=== PATIENT | male | born 1940 | race African-American/Black ===

== ENCOUNTER 2019-04-22 21:37 | Inpatient (IN) | payer MEDICARE ==
[~2019-04-22] VITALS: Ht 177.8 cm; Wt 66.2 kg
[~2019-04-22 21:37] MED LIST: ASPI-1393 PO; ATOR40TA70 PO; BICA50TA48 PO; CLON0.1T PO; FAMO40TA7 PO; GLIP10TA10 PO; NIFE60TA64 PO; OMEP20CA5 PO; SITA100T11 PO; TAMS0.4C31 PO
[2019-04-22] MEDS ORDERED: ENALAPRIL 2.5MG/2ML VIAL 2ML IV ONE (22:00)
[2019-04-22] MEDS ORDERED: SODIUM CHLORIDE 0.9% 1,000 ML IV ONE (22:13)
[2019-04-22] MEDS ORDERED: ENALAPRIL 1.25MG/ML VIAL 1ML IV NR (23:02)
[2019-04-22 23:08] LABS: CLARITY URINE CLEAR (CLEAR); COLOR URINE YELLOW (YELLOW); KETONES URINE NEGATIVE (NEGATIVE); LEUKOCYTE ESTERASE URINE NEGATIVE (NEGATIVE); NITRITE URINE NEGATIVE (NEGATIVE); OCCULT BLOOD URINE NEGATIVE (NEGATIVE); PH URINE 5.5 (4.5-8.0); PROTEIN URINE NEGATIVE (NEGATIVE); SPECIFIC GRAVITY URINE 1.006 (1.005-1.030); UROBILINOGEN URINE 0.2 E.U./dL (0.2-1.0)
[2019-04-22 23:44] LABS: BASOPHILS % 0.6 % (0.0-2.0); EOSINOPHILS % 6.8 % (0.0-5.0); HEMATOCRIT. 33.3 % (42.0-52.0); HEMOGLOBIN. 11.6 g/dL (14.0-18.0); LYMPHOCYTES % 23.5 % (20.0-50.0); MEAN CORPUSCULAR HEMOGLOBIN 31.1 pg (28.0-32.0); MEAN CORPUSCULAR VOLUME 89.1 fL (80.0-94.0); MEAN PLATELET VOLUME 7.1 fl (7.4-10.4); MONOCYTES % 9.1 % (2.0-8.0); PLATELET 231 x1000/uL (130-400); RED BLOOD CELL COUNT 3.74 mill/uL (4.7-6.1); RED CELL DISTRIBUTION WIDTH 13.4 % (11.6-14.6)
[2019-04-22 23:47] LABS: CHLORIDE 105 mEq/L (98-107)
[2019-04-23] VITALS (8 sets, daily range): BP systolic 118–181; BP diastolic 62–93
[2019-04-23] MEDS ORDERED: ASPIRIN 325MG EC TABLET PO ONE (01:45)
[2019-04-23] MEDS ORDERED: METF-414 MT (08:45)
[2019-04-23] MEDS ORDERED: CLONIDINE 0.1MG TABLET PO PRN (08:45)
[2019-04-23] MEDS ORDERED: DEXTROSE 50% WATER 50ML SYRINGE IV PRN ×2 (09:30)
[2019-04-23] MEDS: ASPIRIN 81MG TABLET PO SCH (10:24)
[2019-04-23] MEDS ORDERED: LISI-604 MT (10:38)
[2019-04-23] MEDS ORDERED: FERR325T6 MT (10:38)
[2019-04-23] MEDS ORDERED: AMLODIPINE 5MG TABLET PO SCH (10:45)
[2019-04-23] MEDS ORDERED: METOPROLOL TARTRATE 25MG TABLET PO SCH (10:45)
[2019-04-23] MEDS: BLOOD SUGAR DIAGNOSTIC STRIP TEST SCH ×3 (12:35→20:42)
[2019-04-23] MEDS: INSULIN LISPRO 100 UNITS/ML SUBCUT SCH ×3 (12:38→20:43)
[2019-04-23 12:51] LABS: BASOPHILS % 0.9 % (0.0-2.0); EOSINOPHILS % 4.2 % (0.0-5.0); HEMATOCRIT. 29.9 % (42.0-52.0); HEMOGLOBIN. 10.5 g/dL (14.0-18.0); LYMPHOCYTES % 21.5 % (20.0-50.0); MEAN CORPUSCULAR HEMOGLOBIN 31.2 pg (28.0-32.0); MEAN CORPUSCULAR VOLUME 88.5 fL (80.0-94.0); MEAN PLATELET VOLUME 7.3 fl (7.4-10.4); MONOCYTES % 7.3 % (2.0-8.0); NEUTROPHILS % 66.1 % (40.0-76.0); PLATELET 220 x1000/uL (130-400); RED BLOOD CELL COUNT 3.38 mill/uL (4.7-6.1); RED CELL DISTRIBUTION WIDTH 13.3 % (11.6-14.6)
[2019-04-23 12:56] LABS: PROTHROMBIN TIME 10.5 sec (9.6-11.0)
[2019-04-23 13:29] LABS: CHLORIDE 106 mEq/L (98-107)
[2019-04-23 13:38] LABS: BG CARBOXYHEMOGLOBIN 0.3 % (0.5-1.5); BG DEOXYHEMOGLOBIN 4.5 % (0.0-5.0); BG FRACTION INSPIRED OXYGEN 21; BG HCO3 ACT 26.2 mmol/L (22.0-26.0); BG METHEMOGLOBIN 0.2 % (0.0-1.5); BG OXYGEN SATURATION 95.5 % (92.0-98.5); BG PCO2 44.3 mmHg (35.0-45.0); BG PO2 82.6 mmHg (75.0-100.0); BG SAMPLE SITE RIGHT RADIAL; BG TOTAL HEMOGLOBIN 11.2 g/dL (12.0-18.0); BG VENT MODE ROOM AIR
[2019-04-23] MEDS ORDERED: HYDRALAZINE 20MG/ML VIAL IV PRN (15:15)
[2019-04-23] MEDS ORDERED: IPRATROPIUM/ALBUTEROL 0.5-3(2.5)MG/3ML NEB HHN PRN (15:15)
[2019-04-23] MEDS ORDERED: HYDROCODONE/ACETAMINOPHEN 5/325MG TABLET PO PRN (15:15)
[2019-04-23] MEDS ORDERED: DIPHENHYDRAMINE 50MG/ML VIAL IV PRN (15:15)
[2019-04-23] MEDS: NIFEDIPINE XL 30MG TAB PO SCH (17:06)
[2019-04-23 17:22] LABS: CREATINE KINASE 47 IU/L (39-308); CREATINE KINASE MB FRACTION < 1.0 ng/mL (0.5-3.6)
[2019-04-23] MEDS ORDERED: IOHEXOL-350 100 ML BOTTLE ONE (18:15)
[2019-04-23] MEDS: METOPROLOL TARTRATE 25MG TABLET PO SCH (20:44)
[2019-04-23] MEDS ORDERED: LACTULOSE 20G/30ML UDC PO PRN (21:00)
[2019-04-23] MEDS ORDERED: ATORVASTATIN CALCIUM 10MG TABLET PO SCH (21:00)
[2019-04-23 22:07] LABS: OPIATES URINE SCREEN NEGATIVE (NEGATIVE); PHENCYCLIDINE URINE SCREEN NEGATIVE (NEGATIVE)
[2019-04-23 22:08] LABS: *AMPHETAMINES SCREEN URINE NEGATIVE (NEGATIVE); *BARBITURATES SCREEN URINE NEGATIVE (NEGATIVE); *BENZODIAZEPINES SCREEN URINE NEGATIVE (NEGATIVE); *COCAINE SCREEN URINE NEGATIVE (NEGATIVE); CANNABINOID URINE SCREEN NEGATIVE (NEGATIVE); METHADONE URINE SCREEN NEGATIVE (NEGATIVE)
[2019-04-23 23:35] LABS: CREATINE KINASE 48 IU/L (39-308)
[2019-04-23 23:36] LABS: CREATINE KINASE MB FRACTION < 1.0 ng/mL (0.5-3.6)
[2019-04-24] VITALS (8 sets, daily range): BP systolic 103–159; BP diastolic 55–77
[2019-04-24] MEDS: BLOOD SUGAR DIAGNOSTIC STRIP TEST SCH ×4 (06:20→20:55)
[2019-04-24 06:37] LABS: BASOPHILS % 0.8 % (0.0-2.0); EOSINOPHILS % 7.9 % (0.0-5.0); HEMATOCRIT. 28.6 % (42.0-52.0); HEMOGLOBIN. 10.1 g/dL (14.0-18.0); LYMPHOCYTES % 27.6 % (20.0-50.0); MEAN CORPUSCULAR HEMOGLOBIN 31.3 pg (28.0-32.0); MEAN CORPUSCULAR VOLUME 88.2 fL (80.0-94.0); MEAN PLATELET VOLUME 7.3 fl (7.4-10.4); MONOCYTES % 9.8 % (2.0-8.0); NEUTROPHILS % 53.9 % (40.0-76.0); PLATELET 227 x1000/uL (130-400); RED BLOOD CELL COUNT 3.24 mill/uL (4.7-6.1); RED CELL DISTRIBUTION WIDTH 13.3 % (11.6-14.6)
[2019-04-24 06:38] LABS: CHLORIDE 106 mEq/L (98-107)
[2019-04-24 06:56] LABS: CREATINE KINASE MB FRACTION < 1.0 ng/mL (0.5-3.6); LDL CHOLESTEROL 108 mg/dL (5-100)
[2019-04-24 06:57] LABS: CREATINE KINASE 46 IU/L (39-308); HDL CHOLESTEROL 60 mg/dL (40-59); T4 FREE 1.05 ng/dL (0.76-1.46)
[2019-04-24] MEDS: INSULIN LISPRO 100 UNITS/ML SUBCUT SCH ×4 (07:50→20:57)
[2019-04-24] MEDS: NIFEDIPINE XL 30MG TAB PO SCH (09:20)
[2019-04-24] MEDS: METOPROLOL TARTRATE 25MG TABLET PO SCH ×2 (09:20→20:56)
[2019-04-24] MEDS: ASPIRIN 81MG TABLET PO SCH (09:20)
[2019-04-24 16:22] LABS: VITAMIN B12 SERUM 405 pg/mL (211-911)
[2019-04-24] MEDS: ATORVASTATIN CALCIUM 20MG TABLET PO SCH (20:56)
[2019-04-25] VITALS (7 sets, daily range): BP systolic 127–186; BP diastolic 67–90
[2019-04-25] MEDS: BLOOD SUGAR DIAGNOSTIC STRIP TEST SCH ×4 (06:20→21:43)
[2019-04-25 06:56] LABS: EOSINOPHILS % 7.2 % (0.0-5.0); HEMATOCRIT. 29.5 % (42.0-52.0); HEMOGLOBIN. 10.5 g/dL (14.0-18.0); LYMPHOCYTES % 26.9 % (20.0-50.0); MEAN CORPUSCULAR HEMOGLOBIN 31.6 pg (28.0-32.0); MEAN CORPUSCULAR VOLUME 88.8 fL (80.0-94.0); MEAN PLATELET VOLUME 7.4 fl (7.4-10.4); MONOCYTES % 9.9 % (2.0-8.0); PLATELET 222 x1000/uL (130-400); RED BLOOD CELL COUNT 3.32 mill/uL (4.7-6.1); RED CELL DISTRIBUTION WIDTH 13.3 % (11.6-14.6)
[2019-04-25 06:59] LABS: CHLORIDE 107 mEq/L (98-107)
[2019-04-25] MEDS: INSULIN LISPRO 100 UNITS/ML SUBCUT SCH ×4 (09:06→21:45)
[2019-04-25] MEDS: ASPIRIN 81MG TABLET PO SCH (09:09)
[2019-04-25] MEDS: METOPROLOL TARTRATE 25MG TABLET PO SCH ×2 (09:09→21:43)
[2019-04-25] MEDS: NIFEDIPINE XL 30MG TAB PO SCH (09:09)
[2019-04-25] MEDS: LOSARTAN POTASSIUM 50 MG TABLET PO SCH (17:34)
[2019-04-25] MEDS: ATORVASTATIN CALCIUM 20MG TABLET PO SCH (21:43)
[2019-04-26] VITALS (8 sets, daily range): BP systolic 127–182; BP diastolic 60–85
[2019-04-26] MEDS ORDERED: DEXT 5%/0.45% NACL 1000ML 1,000 ML IV SCH
[2019-04-26] MEDS: BLOOD SUGAR DIAGNOSTIC STRIP TEST SCH ×3 (06:23→17:11)
[2019-04-26 07:23] LABS: BASOPHILS % 0.7 % (0.0-2.0); EOSINOPHILS % 6.9 % (0.0-5.0); HEMATOCRIT. 30.2 % (42.0-52.0); HEMOGLOBIN. 10.4 g/dL (14.0-18.0); LYMPHOCYTES % 26.8 % (20.0-50.0); MEAN CORPUSCULAR HEMOGLOBIN 30.5 pg (28.0-32.0); MEAN CORPUSCULAR VOLUME 88.8 fL (80.0-94.0); MEAN PLATELET VOLUME 7.4 fl (7.4-10.4); MONOCYTES % 9.2 % (2.0-8.0); NEUTROPHILS % 56.4 % (40.0-76.0); PLATELET 222 x1000/uL (130-400); RED CELL DISTRIBUTION WIDTH 13.4 % (11.6-14.6)
[2019-04-26 07:30] LABS: CHLORIDE 108 mEq/L (98-107)
[2019-04-26] MEDS: INSULIN LISPRO 100 UNITS/ML SUBCUT SCH ×3 (08:06→17:15)
[2019-04-26] MEDS: LOSARTAN POTASSIUM 50 MG TABLET PO SCH ×2 (08:13→17:11)
[2019-04-26] MEDS: NIFEDIPINE XL 30MG TAB PO SCH (08:14)
[2019-04-26] MEDS: ASPIRIN 81MG TABLET PO SCH (08:14)
[2019-04-26] MEDS: METOPROLOL TARTRATE 25MG TABLET PO SCH (08:15)
[2019-04-26] MEDS ORDERED: ATOR80TA MT (13:51)
[2019-04-26] MEDS ORDERED: ASPI-1158 PO (13:51)
[2019-04-26] MEDS ORDERED: METO25TA6 MT (13:51)
[2019-04-26] MEDS ORDERED: LOSA25TA3 PO (13:51)
[2019-04-26] MEDS ORDERED: NIFE10CA PO (13:51)
[2019-04-26 14:24] LABS: TOTAL IRON BINDING CAPACITY 247 ug/dL (250-450)
[2019-04-26] MEDS ORDERED: ATORVASTATIN CALCIUM 40MG TABLET PO SCH (21:00)
== END 2019-04-26 18:35 | disposition home or self-care (01) | DRG 74 ==
LOC: ER 21:37 → 6WST 04-23 01:38 → ENRESERV 04-23 07:09
PROVIDERS: ADMIT Internal Medicine; ATTEND Internal Medicine
DX: G90.8 Other disorders of autonomic nervous system (principal); I65.23 Occlusion and stenosis of bilateral carotid arteries; I16.0 Hypertensive urgency; I25.10 Atherosclerotic heart disease of native coronary artery without angina pectoris; E11.65 Type 2 diabetes mellitus with hyperglycemia; D64.9 Anemia, unspecified; E78.00 Pure hypercholesterolemia, unspecified; K21.9 Gastro-esophageal reflux disease without esophagitis; N40.0 Benign prostatic hyperplasia without lower urinary tract symptoms; E78.5 Hyperlipidemia, unspecified; Z92.3 Personal history of irradiation; Z79.84 Long term (current) use of oral hypoglycemic drugs; Z79.899 Other long term (current) drug therapy; Z85.46 Personal history of malignant neoplasm of prostate
CPT/HCPCS: 36415; 36600; 70498; 70551; 71045; 74176; 80048; 80061; 80305; 81003; 82375; 82550; 82553; 82607; 82805; 82962; 83036; 83540; 83550; 83605; 83735; 83880; 84153; 84439; 84443; 84484; 85044; 85379; 86850; 86900; 87804; 93005; 93306; 93880; 95816; 97162; 99285; J1815; J3490; J7030; Q9967; G0103

== ENCOUNTER 2020-07-25 00:31 | Inpatient (IN) | payer MEDICARE, OTHER ==
[~2020-07-25] VITALS: Ht 172.7 cm; Wt 69.9 kg
[~2020-07-25 00:31] MED LIST changes: -ASPI-1393 PO; +ASPI-1406 PO; -ATOR40TA70 PO; +ATOR80TA MT; -BICA50TA48 PO; -CLON0.1T PO; -FAMO40TA7 PO; +FERR325T6 MT; -GLIP10TA10 PO; +LOSA25TA3 PO; +METF-414 MT; +METO25TA6 MT; +NIFE10CA PO; -NIFE60TA64 PO; -OMEP20CA5 PO; -SITA100T11 PO; -TAMS0.4C31 PO
[2020-07-25] MEDS ORDERED: NITROGLYCERIN 0.4MG TABLET SL SL PRN (01:00)
[2020-07-25] MEDS ORDERED: ASPIRIN 81MG TABLET PO ONE (01:00)
[2020-07-25 01:12] LABS: BASOPHILS % 0.4 % (0.0-2.0); EOSINOPHILS % 4.1 % (0.0-5.0); HEMATOCRIT. 31.5 % (42.0-52.0); HEMOGLOBIN. 10.8 g/dL (14.0-18.0); MEAN CORPUSCULAR HEMOGLOBIN 29.8 pg (28.0-32.0); MEAN CORPUSCULAR VOLUME 87.2 fL (80.0-94.0); MONOCYTES % 6.6 % (2.0-8.0); NEUTROPHILS % 59.9 % (40.0-76.0); PLATELET 339 x1000/uL (130-400); RED BLOOD CELL COUNT 3.62 mill/uL (4.7-6.1); RED CELL DISTRIBUTION WIDTH 12.9 % (11.6-14.6)
[2020-07-25 01:34] LABS: CHLORIDE 103 mEq/L (98-107)
[2020-07-25] MEDS ORDERED: CEFTRIAXONE 1 G PREMIX 50 ML IV SCH (02:00)
[2020-07-25] MEDS ORDERED: AZITHROMYCIN 500 MG in DEXT 5% WATER 250 ML IV SCH (02:00)
[2020-07-25] MEDS ORDERED: ALBUTEROL 6.7GM HFA INHALER ORI PRN (07:45)
[2020-07-25] MEDS ORDERED: MAGNESIUM/ALUMINUM HYDROXIDE/SIMETHICONE 30ML UDC PO PRN (07:45)
[2020-07-25] MEDS ORDERED: DIPHENHYDRAMINE 50MG/ML VIAL IV PRN (07:45)
[2020-07-25] MEDS ORDERED: HYDROCODONE/ACETAMINOPHEN 5/325MG TABLET PO PRN (07:45)
[2020-07-25] MEDS ORDERED: GUAIFENESIN 200MG/10ML SUGAR FREE UDC PO PRN (07:45)
[2020-07-25] MEDS ORDERED: DOCUSATE SODIUM 100MG CAPSULE PO PRN (07:45)
[2020-07-25] MEDS ORDERED: ONDANSETRON HCL 4MG/2ML INJ IV PRN (07:45)
[2020-07-25] MEDS ORDERED: MORPHINE SULFATE 2 MG/ML CPJ (NOT FOR IM USE) IV PRN (07:45)
[2020-07-25] MEDS ORDERED: LORAZEPAM 2MG/ML CPJ IV PRN (07:45)
[2020-07-25] MEDS: ENOXAPARIN 40MG/0.4ML SYR SUBCUT SCH (08:34)
[2020-07-25 12:00] VITALS: BP 174/92
[2020-07-25] MEDS: CLONIDINE 0.1MG TABLET PO PRN (13:30)
[2020-07-25] MEDS: SODIUM CHLORIDE 0.9% 1,000 ML IV SCH (13:31)
[2020-07-25] MEDS: SODIUM CHLORIDE 0.9% INJ 3ML FLUSH IVF SCH ×2 (13:31→22:00)
[2020-07-25 16:00] VITALS: BP 182/88
[2020-07-25 18:43] LABS: CREATINE KINASE 42 IU/L (39-308)
[2020-07-25 18:44] LABS: CREATINE KINASE MB FRACTION < 1.0 ng/mL (0.5-3.6)
[2020-07-25 18:45] LABS: T4 FREE 1.15 ng/dL (0.76-1.46)
[2020-07-25 20:00] VITALS: BP 125/77
[2020-07-26 00:40] LABS: CREATINE KINASE 59 IU/L (39-308); CREATINE KINASE MB FRACTION < 1.0 ng/mL (0.5-3.6)
[2020-07-26] MEDS ORDERED: CEFTRIAXONE 1 G PREMIX 50 ML IV SCH (01:00)
[2020-07-26] MEDS: AZITHROMYCIN 500 MG in DEXT 5% WATER 250 ML IV SCH (01:30)
[2020-07-26 02:00] VITALS: BP 181/78
[2020-07-26] MEDS: CEFTRIAXONE 1,000 MG in DEXTROSE 5% WATER 50 ML IV SCH (02:04)
[2020-07-26] MEDS: CLONIDINE 0.1MG TABLET PO PRN ×2 (02:11→09:00)
[2020-07-26 04:00] VITALS: BP 159/70
[2020-07-26 08:00] VITALS: BP 186/89
[2020-07-26 08:28] LABS: CHLORIDE 109 mEq/L (98-107)
[2020-07-26 08:40] LABS: CREATINE KINASE 34 IU/L (39-308)
[2020-07-26 08:43] LABS: BASOPHILS % 0.5 % (0.0-2.0); EOSINOPHILS % 5.7 % (0.0-5.0); HEMATOCRIT. 24.6 % (42.0-52.0); HEMOGLOBIN. 8.7 g/dL (14.0-18.0); LYMPHOCYTES % 33.4 % (20.0-50.0); MEAN CORPUSCULAR HEMOGLOBIN 30.5 pg (28.0-32.0); MEAN CORPUSCULAR VOLUME 86.6 fL (80.0-94.0); MEAN PLATELET VOLUME 7.2 fl (7.4-10.4); MONOCYTES % 9.7 % (2.0-8.0); NEUTROPHILS % 50.7 % (40.0-76.0); PLATELET 277 x1000/uL (130-400); RED BLOOD CELL COUNT 2.84 mill/uL (4.7-6.1); RED CELL DISTRIBUTION WIDTH 12.7 % (11.6-14.6)
[2020-07-26 08:44] LABS: CREATINE KINASE MB FRACTION < 1.0 ng/mL (0.5-3.6)
[2020-07-26] MEDS: ENOXAPARIN 40MG/0.4ML SYR SUBCUT SCH (09:00)
[2020-07-26 12:00] VITALS: BP 152/53
[2020-07-26] MEDS: AMLODIPINE 10MG TABLET PO SCH (13:08)
[2020-07-26] MEDS: SODIUM CHLORIDE 0.9% INJ 3ML FLUSH IVF SCH ×2 (13:09→22:40)
[2020-07-26] MEDS: SODIUM CHLORIDE 0.9% 1,000 ML IV SCH (13:10)
[2020-07-26 16:00] VITALS: BP 164/67
[2020-07-26] MEDS: METFORMIN HCL 500MG TABLET PO SCH (17:33)
[2020-07-26] MEDS: BLOOD SUGAR DIAGNOSTIC STRIP TEST SCH (17:55)
[2020-07-26 20:00] VITALS: BP 166/75
[2020-07-26] MEDS: HYDRALAZINE HCL 50MG TABLET PO SCH (22:40)
[2020-07-26] MEDS: CLONIDINE 0.3MG TABLET PO PRN (23:56)
[2020-07-27] VITALS (7 sets, daily range): BP systolic 144–225; BP diastolic 50–95
[2020-07-27] MEDS: SODIUM CHLORIDE 0.9% 1,000 ML IV SCH ×2 (05:00→18:20)
[2020-07-27] MEDS: AZITHROMYCIN 500 MG in DEXT 5% WATER 250 ML IV SCH (06:09)
[2020-07-27] MEDS: CEFTRIAXONE 1,000 MG in DEXTROSE 5% WATER 50 ML IV SCH (06:10)
[2020-07-27] MEDS: SODIUM CHLORIDE 0.9% INJ 3ML FLUSH IVF SCH ×3 (06:11→22:05)
[2020-07-27] MEDS: BLOOD SUGAR DIAGNOSTIC STRIP TEST SCH ×5 (07:41→21:13)
[2020-07-27] MEDS: METFORMIN HCL 500MG TABLET PO SCH ×2 (08:34→17:15)
[2020-07-27] MEDS: AMLODIPINE 10MG TABLET PO SCH (08:34)
[2020-07-27] MEDS: HYDRALAZINE HCL 50MG TABLET PO SCH (08:34)
[2020-07-27] MEDS: ENOXAPARIN 40MG/0.4ML SYR SUBCUT SCH (08:44)
[2020-07-27] MEDS: HYDRALAZINE HCL 100MG TABLET PO SCH ×3 (09:58→17:15)
[2020-07-27] MEDS ORDERED: DEXTROSE 50% WATER 50ML SYRINGE IV PRN (13:00)
[2020-07-27] MEDS: INSULIN LISPRO 100 UNITS/ML SUBCUT SCH ×3 (13:20→21:00)
[2020-07-28] VITALS: BP 145/75
[2020-07-28] MEDS: ACETAMINOPHEN 325MG TABLET PO PRN ×2 (00:36→12:03)
[2020-07-28] MEDS: CEFTRIAXONE 1,000 MG in DEXTROSE 5% WATER 50 ML IV SCH (02:18)
[2020-07-28 04:00] VITALS: BP 135/63
[2020-07-28] MEDS: AZITHROMYCIN 250 MG TABLET PO SCH (06:20)
[2020-07-28] MEDS: SODIUM CHLORIDE 0.9% INJ 3ML FLUSH IVF SCH ×3 (06:20→21:48)
[2020-07-28] MEDS: SODIUM CHLORIDE 0.9% 1,000 ML IV SCH (07:40)
[2020-07-28 08:00] VITALS: BP 151/71
[2020-07-28] MEDS: AMLODIPINE 10MG TABLET PO SCH (08:23)
[2020-07-28] MEDS: METFORMIN HCL 500MG TABLET PO SCH ×2 (08:23→18:25)
[2020-07-28] MEDS: HYDRALAZINE HCL 100MG TABLET PO SCH ×3 (08:23→17:00)
[2020-07-28] MEDS: INSULIN LISPRO 100 UNITS/ML SUBCUT SCH ×4 (08:24→22:41)
[2020-07-28] MEDS: ENOXAPARIN 40MG/0.4ML SYR SUBCUT SCH (08:24)
[2020-07-28] MEDS: BLOOD SUGAR DIAGNOSTIC STRIP TEST SCH ×4 (08:24→21:00)
[2020-07-28 12:00] VITALS: BP 157/76
[2020-07-28] MEDS: CLONIDINE 0.3MG TABLET PO PRN (12:00)
[2020-07-28 13:46] LABS: BASOPHILS % 0.6 % (0.0-2.0); EOSINOPHILS % 0.5 % (0.0-5.0); LYMPHOCYTES % 19.3 % (20.0-50.0); MEAN CORPUSCULAR HEMOGLOBIN 30.4 pg (28.0-32.0); MEAN CORPUSCULAR VOLUME 87.6 fL (80.0-94.0); MEAN PLATELET VOLUME 7.2 fl (7.4-10.4); MONOCYTES % 9.9 % (2.0-8.0); NEUTROPHILS % 69.7 % (40.0-76.0); PLATELET 303 x1000/uL (130-400); RED BLOOD CELL COUNT 2.96 mill/uL (4.7-6.1); RED CELL DISTRIBUTION WIDTH 12.8 % (11.6-14.6)
[2020-07-28 14:15] LABS: BG BASE EXCESS -2.2 mmol/L (-2.0-2.0); BG CARBOXYHEMOGLOBIN 0.3 % (0.5-1.5); BG DEOXYHEMOGLOBIN 3.4 % (0.0-5.0); BG FRACTION INSPIRED OXYGEN 21; BG HCO3 ACT 21.6 mmol/L (22.0-26.0); BG METHEMOGLOBIN 0.4 % (0.0-1.5); BG OXYGEN SATURATION 96.6 % (92.0-98.5); BG OXYHEMOGLOBIN 95.9 % (94.0-97.0); BG PCO2 32.4 mmHg (35.0-45.0); BG PH 7.442 (7.350-7.450); BG PO2 87.4 mmHg (75.0-100.0); BG SAMPLE SITE RIGHT RADIAL; BG TOTAL HEMOGLOBIN 7.3 g/dL (12.0-18.0); BG VENT MODE ROOM AIR
[2020-07-28 14:15] LABS: CHLORIDE 105 mEq/L (98-107)
[2020-07-28 16:00] VITALS: BP 95/44
[2020-07-28] MEDS ORDERED: POTASSIUM CHLORIDE 20MEQ TABLET SR PO NR (17:15)
[2020-07-28 20:00] VITALS: BP 117/56
[2020-07-28] MEDS: FAMOTIDINE 20MG TABLET PO SCH (21:47)
[2020-07-29] VITALS: BP 140/65
[2020-07-29] MEDS: CEFTRIAXONE 1,000 MG in DEXTROSE 5% WATER 50 ML IV SCH (02:46)
[2020-07-29 04:00] VITALS: BP 135/57
[2020-07-29] MEDS: SODIUM CHLORIDE 0.9% INJ 3ML FLUSH IVF SCH ×3 (06:26→22:21)
[2020-07-29] MEDS: AZITHROMYCIN 250 MG TABLET PO SCH (06:26)
[2020-07-29] MEDS: BLOOD SUGAR DIAGNOSTIC STRIP TEST SCH ×4 (07:21→21:20)
[2020-07-29 07:28] LABS: BASOPHILS % 0.7 % (0.0-2.0); EOSINOPHILS % 2.1 % (0.0-5.0); HEMATOCRIT. 24.9 % (42.0-52.0); HEMOGLOBIN. 8.6 g/dL (14.0-18.0); LYMPHOCYTES % 29.6 % (20.0-50.0); MEAN CORPUSCULAR HEMOGLOBIN 30.5 pg (28.0-32.0); MEAN CORPUSCULAR VOLUME 87.9 fL (80.0-94.0); MEAN PLATELET VOLUME 7.2 fl (7.4-10.4); MONOCYTES % 10.7 % (2.0-8.0); NEUTROPHILS % 56.9 % (40.0-76.0); PLATELET 294 x1000/uL (130-400); RED BLOOD CELL COUNT 2.83 mill/uL (4.7-6.1); RED CELL DISTRIBUTION WIDTH 12.7 % (11.6-14.6)
[2020-07-29 08:00] VITALS: BP 126/58
[2020-07-29 08:13] LABS: CHLORIDE 107 mEq/L (98-107)
[2020-07-29] MEDS: METFORMIN HCL 500MG TABLET PO SCH ×2 (08:57→17:56)
[2020-07-29] MEDS: AMLODIPINE 10MG TABLET PO SCH (08:58)
[2020-07-29] MEDS: ENOXAPARIN 40MG/0.4ML SYR SUBCUT SCH (08:58)
[2020-07-29] MEDS: INSULIN LISPRO 100 UNITS/ML SUBCUT SCH ×4 (08:58→22:26)
[2020-07-29] MEDS: HYDRALAZINE HCL 100MG TABLET PO SCH ×3 (08:58→17:56)
[2020-07-29 11:57] LABS: CLARITY URINE CLEAR (CLEAR); COLOR URINE YELLOW (YELLOW); KETONES URINE NEGATIVE (NEGATIVE); LEUKOCYTE ESTERASE URINE NEGATIVE (NEGATIVE); NITRITE URINE NEGATIVE (NEGATIVE); OCCULT BLOOD URINE NEGATIVE (NEGATIVE); PH URINE 5.5 (4.5-8.0); PROTEIN URINE NEGATIVE (NEGATIVE); SPECIFIC GRAVITY URINE 1.011 (1.005-1.030); UROBILINOGEN URINE 0.2 E.U./dL (0.2-1.0)
[2020-07-29 12:00] VITALS: BP 160/73
[2020-07-29] MEDS: NITROGLYCERIN 0.4MG TABLET SL SL PRN ×2 (12:22→14:46)
[2020-07-29] MEDS: ASPIRIN 81MG TABLET PO SCH (12:29)
[2020-07-29 15:26] LABS: BG CARBOXYHEMOGLOBIN 0.3 % (0.5-1.5); BG DEOXYHEMOGLOBIN 3.8 % (0.0-5.0); BG FRACTION INSPIRED OXYGEN 21; BG HCO3 ACT 20.9 mmol/L (22.0-26.0); BG METHEMOGLOBIN 0.3 % (0.0-1.5); BG OXYGEN SATURATION 96.2 % (92.0-98.5); BG OXYHEMOGLOBIN 95.6 % (94.0-97.0); BG PCO2 32.9 mmHg (35.0-45.0); BG PH 7.421 (7.350-7.450); BG SAMPLE SITE LEFT BRACHIAL; BG TOTAL HEMOGLOBIN 9.7 g/dL (12.0-18.0); BG VENT MODE ROOM AIR
[2020-07-29 16:00] VITALS: BP 143/66
[2020-07-29 17:39] LABS: CREATINE KINASE MB FRACTION 2.4 ng/mL (0.5-3.6)
[2020-07-29] MEDS ORDERED: LEVOFLOXACIN 500MG PREMIX 100 ML IV SCH (18:00)
[2020-07-29 20:00] VITALS: BP 175/84
[2020-07-29] MEDS: FAMOTIDINE 20MG TABLET PO SCH (22:20)
[2020-07-30] VITALS: BP 174/76
[2020-07-30 00:28] LABS: CREATINE KINASE MB FRACTION 1.8 ng/mL (0.5-3.6)
[2020-07-30 04:00] VITALS: BP 177/86
[2020-07-30] MEDS: SODIUM CHLORIDE 0.9% INJ 3ML FLUSH IVF SCH ×2 (06:31→15:28)
[2020-07-30] MEDS: BLOOD SUGAR DIAGNOSTIC STRIP TEST SCH ×3 (07:18→17:40)
[2020-07-30 07:22] LABS: CHLORIDE 105 mEq/L (98-107)
[2020-07-30 07:26] LABS: BASOPHILS % 0.6 % (0.0-2.0); EOSINOPHILS % 0.8 % (0.0-5.0); HEMATOCRIT. 26.5 % (42.0-52.0); HEMOGLOBIN. 9.2 g/dL (14.0-18.0); LYMPHOCYTES % 31.5 % (20.0-50.0); MEAN CORPUSCULAR HEMOGLOBIN 30.4 pg (28.0-32.0); MEAN CORPUSCULAR VOLUME 87.4 fL (80.0-94.0); MONOCYTES % 11.2 % (2.0-8.0); NEUTROPHILS % 55.9 % (40.0-76.0); PLATELET 321 x1000/uL (130-400); RED BLOOD CELL COUNT 3.03 mill/uL (4.7-6.1); RED CELL DISTRIBUTION WIDTH 13.1 % (11.6-14.6)
[2020-07-30 07:38] LABS: CREATINE KINASE 219 IU/L (39-308)
[2020-07-30 07:40] LABS: CREATINE KINASE MB FRACTION 2.4 ng/mL (0.5-3.6)
[2020-07-30 08:00] VITALS: BP 128/86
[2020-07-30] MEDS: HYDRALAZINE HCL 100MG TABLET PO SCH ×3 (08:39→17:00)
[2020-07-30] MEDS: ASPIRIN 81MG TABLET PO SCH (08:39)
[2020-07-30] MEDS: AMLODIPINE 10MG TABLET PO SCH (08:39)
[2020-07-30] MEDS: METFORMIN HCL 500MG TABLET PO SCH (08:39)
[2020-07-30] MEDS: INSULIN LISPRO 100 UNITS/ML SUBCUT SCH ×2 (08:40→12:49)
[2020-07-30] MEDS: ENOXAPARIN 40MG/0.4ML SYR SUBCUT SCH (08:42)
[2020-07-30 12:00] VITALS: BP 164/68
[2020-07-30] MEDS ORDERED: ASCO-339 MT (15:05)
[2020-07-30] MEDS ORDERED: FAMO20TA8 PO (15:05)
[2020-07-30] MEDS ORDERED: HYDR100T26 PO (15:05)
[2020-07-30] MEDS ORDERED: ZINC220T4 MT (15:05)
[2020-07-30] MEDS ORDERED: ASPI-1497 MT (15:05)
[2020-07-30] MEDS ORDERED: METO-539 MT (15:05)
[2020-07-30] MEDS ORDERED: AMLO10TA80 PO (15:05)
[2020-07-30] MEDS ORDERED: ALBU90AE INH (15:05)
[2020-07-30] MEDS ORDERED: DEXA2TAB PO (15:05)
[2020-07-30 16:00] VITALS: BP 158/58
[2020-07-30 16:10] VITALS: BP 164/68
== END 2020-07-30 17:25 | disposition home or self-care (01) | DRG 177 ==
LOC: ER 00:31 → 7WST 04:07 → ENRESERV 09:53
PROVIDERS: ADMIT Internal Medicine; ATTEND Internal Medicine
DX: U07.1 COVID-19 (principal); I21.4 Non-ST elevation (NSTEMI) myocardial infarction; J12.82 Pneumonia due to coronavirus disease 2019; J96.00 Acute respiratory failure, unspecified whether with hypoxia or hypercapnia; N17.0 Acute kidney failure with tubular necrosis; E44.1 Mild protein-calorie malnutrition; E11.9 Type 2 diabetes mellitus without complications; D64.9 Anemia, unspecified; I10 Essential (primary) hypertension; E87.6 Hypokalemia; Z68.23 Body mass index [BMI] 23.0-23.9, adult; Z79.84 Long term (current) use of oral hypoglycemic drugs; Z79.899 Other long term (current) drug therapy; Z79.82 Long term (current) use of aspirin
CPT/HCPCS: 36415; 36600; 71045; 80048; 80053; 80061; 81003; 82375; 82550; 82553; 82728; 82805; 82962; 83036; 83605; 83880; 84145; 84439; 84443; 84484; 85025; 85379; 86141; 93005; 93970; 99285; J0456; J0696; J1650; J1815; J1956; J2270; J7030; J7060; U0003